=== PATIENT | female | born 1950 | race Caucasian/White ===

== ENCOUNTER → 2018-09-13 | Outpatient (CLI) | payer OTHER, MEDICARE ==
[~2018-09-13] VITALS: Ht 160 cm; Wt 107.0 kg
[~2018-09-13] MED LIST: AMITRIPTYLINE H10 M3 PO; ASPIRIN325 PO; AUGMENTIN 875-1 EACH PO; CARDIZEM CD 18180 M3 PO; FLECAINIDE ACET50 M1 PO; IMITREX100 MG PO; LOPRESSOR25 PO; METFORMIN HCL500 MG PO; PANTOPRAZOLE SO40 M1 PO; PREDNISONE 10 M10 MG PO; PREDNISONE 20 M20 M1 PO; PROAIR HFA8.5 GM PO; PROPRANOLOL 1010 MG PO; SINGULAIR 10 MG10 M1 PO; SUMATRIPTAN-NA1 EACH PO; TORADOL 10 MG T10 MG PO
--- NOTE | ~2018-09-13 | P ---
[facility] [place] [address] PROCEDURE REPORT Name: LYNNE CERDA Room #: REG BRAN RainerRainer#: [id number] Admission: 09/13/18 ������������������ Attend Phys: Dorian Gonsalves MD Discharge: ������������������ Date of : 48 Report #: [id number] THIS REPORT FOR: //name// CC: Dorian Owens [facility] DATE OF SERVICE: 09/13/2018 PREOPERATIVE DIAGNOSIS: Supraventricular tachycardia. 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 PROCEDURES PERFORMED: 1. SVT ablation, CPT 11472. 2. EP with left atrial pacing and recording, CPT code 86941. 3. Program stimulation and pacing after IV drug infusion, CPT code 97044. 4. 3D mapping, CPT code 32989. HISTORY OF PRESENT ILLNESS: The patient is a 67-year-old female with a history of recurrent supraventricular tachycardia that is adenosine sensitive here for SVT ablation. ANESTHESIA: The patient underwent MAC anesthesia with no anesthesia related complications. DESCRIPTION OF PROCEDURE: The patient underwent informed consent. We discussed the details of the procedure including the risks, which include but not limited to bleeding, vascular damage, stroke, MT as well as damage to the [place] conduction system requiring permanent pacemaker. She understood these risks and is willing to proceed. The patient was brought to the EP laboratory in a fasting and sedated state, prepped and draped in a sterile fashion. I obtained access to the bilateral femoral veins after injecting lidocaine and placed sheaths using the modified Seldinger technique. In the right femoral vein, I placed an 8 and 6-Cuban short sheath and in the left femoral vein I placed a 6 and 7-Cuban short sheath. Next, I attempted to place catheters. Trying to place the RV catheter, it did appear that maybe I was in the arteries, so I did obtain access to the left femoral vein another time. I also obtained access to the right femoral vein a second time as well placing an 8-Cuban short sheath. Next, I was able to place my quadripolar catheter into the RV, one catheter at the His and another catheter at the HRA. I had difficulties placing the decapolar into the coronary sinus. When I finally thought I was in the coronary sinus, fluoroscopically did not look like your standard the CS anatomy. I therefore pulled the decapolar catheter out as I don't know if I was in the [facility] [address] [place] [address] PROCEDURE REPORT Name: LYNNE CERDA Room #: REG [facility]#: [id number] Admission: 09/13/18 ������������������ Attend Phys: Dorian Gonsalves MD Discharge: ������������������ Date of : 48 Report #: [id number] right ventricular outflow tract or potentially. Therefore, basic EP study was performed. At baseline, the patient was in sinus rhythm with sinus cycle length of 840 milliseconds, HI interval 175 milliseconds, QRS duration 75 milliseconds, QT interval 370 milliseconds, AH interval 100 milliseconds, HV interval 40 milliseconds. Atrial burst pacing was performed and AV block was noted at 470 milliseconds, AV shania ERP was noted at 300 milliseconds at a [address] cycle length with evidence of single and double AV shania echoes. Ventricular pacing was performed and VA block was noted at 420 milliseconds and VA ERP was noted at 400 milliseconds at a [address] cycle length. VA conduction appeared to be both midline and decremental. Isoproterenol was initiated at 2 mcg per minute and after this kicked in, SVT was easily inducible. The SVT demonstrated a septal VA time of 35 milliseconds with a tachycardia cycle length of 400 milliseconds. Ventricular entrainment was performed and there was a VAHV response consistent with typical AV shania reentrant tachycardia. SVT could easily be induced with single AV shania echoes or atrial burst pacing. 3D MAPPING AND ABLATION: Next, I advanced my 4 mm [employer] [place] ablation catheter into the right atrium. I created a detailed 3D geometry of the right atrium. I do think that the patient likely has a PFO based on the fact that it appeared that I could cross the septum and was likely in the left atrium with ablation catheter. Next, I mapped the His region and the coronary sinus. The patient did have a very vertical coronary sinus and a very large ostium. Therefore, it does appear that I was in the CS at the beginning of the case, although it appeared it had unusual takeoff. Therefore, after I 3D mapped to the coronary sinus, I did put the decapolar catheter into the coronary sinus prior to ablation. Next, I mapped for the slow pathway region. There were some small signals suggestive of the slow pathway that were approximately 15 mm below the His signals. I performed a total of 5 ablation lesions at this site at 50 horvath and 55 degrees and I only got one junctional. Due to her unusual anatomy, I decided to do some post-ablation testing and AVNRT was easily inducible. Therefore, I performed several additional ablation lesions. We did a total of 12 ablation lesions and the last 3 were slightly more in the coronary sinus ostium, which was quite vertical and I had a sharper atrial signals at this location. Ablation at this spot resulted in nice slow junctionals on these three lesions. There was never any compromise to AV shania conduction. As such, we decided to perform post-ablation testing at this point. POST-ABLATION TESTING: Isoproterenol was reinitiated at 2 mcg. Atrial burst pacing was performed and AV block was noted at 300 milliseconds. Atrial ERP was noted at 230 milliseconds at a [address] cycle length. There was no longer a long AH interval nor was there any single AV shania echoes. We tested for about 30 minutes and could not induce SVT where this was easily inducible beforehand. As such isoproterenol was discontinued. Post-ablation, the patient was in sinus rhythm with a sinus cycle length of 590 milliseconds, [facility] [address] [place] [address] PROCEDURE REPORT Name: LYNNE CERDA Room #: [facility]#: [id number] Admission: 09/13/18 ������������������ Attend Phys: Dorian Gonsalves MD Discharge: ������������������ Date of : 48 Report #: [id number] HI interval 180 milliseconds, QRS duration 75 milliseconds, QT interval 340 milliseconds, AH interval 85 milliseconds, and HV interval 41 milliseconds. As such, all catheters and sheaths were pulled. Hemostasis was obtained and the patient awoke neurologically and hemodynamically intact. No complications and no significant bleeding. CONCLUSIONS: 1. Successful ablation of typical AV shania tachycardia. 2. Normal SA shania function. 3. Normal AV shania function. 4. Normal His-Purkinje function. 5. No other inducible arrhythmias on or off isoproterenol. 6. 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 ��������������������������������������������� ���������������������������������������� By: ��������������������������������������������� [id number] Dorian Gonsalves MD /nt
[2018-09-13 07:09] LABS: ABSOLUTE NEUTROPHILS 5.1 thou/uL (1.4-8.2); BASOPHILS 0.9 % (0.0-2.0); EOSINOPHILS 3.1 % (0.0-3.0); HEMATOCRIT 45.2 % (37.0-47.0); HEMOGLOBIN 15.1 gm/dL (12.0-15.0); LYMPHOCYTES 28.6 % (24.0-44.0); MCH 29.8 pg (26.0-34.0); MCHC 33.3 g/dL (28.0-37.0); MCV 89.4 fL (80.0-100.0); MONOCYTES 7.8 % (1.0-8.0); PLATELET COUNT 278 thou/uL (150-400); POLYS 59.6 % (36.0-66.0); RBC 5.06 mil/uL (4.20-5.00); RDW 13.7 % (10.5-14.5); WBC 8.5 thou/uL (4.0-11.0)
[2018-09-13 07:15] VITALS: BP 140/63
[2018-09-13 07:18] LABS: CALCIUM 9.8 mg/dL (8.5-10.1); POTASSIUM 4.6 mmol/L (3.5-5.1)
[2018-09-13 07:25] LABS: TOTAL BILIRUBIN 0.3 mg/dL (<0.1-1.0); TOTAL PROTEIN 7.5 g/dL (6.4-8.2)
[2018-09-13 07:36] LABS: APTT 28.9 Seconds (24.5-32.8); PROTIME 9.4 Seconds (9.3-11.4)
== END | disposition home or self-care (01) ==
LOC: CATH 09-12 11:16
PROVIDERS: Internal Medicine Cardiovascular Disease
DX: I47.1 Supraventricular tachycardia (principal); J45.909 Unspecified asthma, uncomplicated; E66.09 Other obesity due to excess calories; I48.91 Unspecified atrial fibrillation; G43.909 Migraine, unspecified, not intractable, without status migrainosus; Z90.710 Acquired absence of both cervix and uterus; Z88.6 Allergy status to analgesic agent; Z98.890 Other specified postprocedural states; Z79.899 Other long term (current) drug therapy; Z79.01 Long term (current) use of anticoagulants
CPT/HCPCS: 62110; 62900; 70005

== ENCOUNTER → 2020-03-20 | Outpatient (CLI) | payer OTHER, MEDICARE ==
[~2020-03-20] MED LIST changes: +AZITHROMYCIN 2250 MG PO; +IPRAT-ALBUT 0.5-3 ML INH; +LEVALBUTER1.25 MG/0. INH; +PREDNISONE 10 M10 M1 PO
== END ==
LOC: SJCVC 16:24
PROVIDERS: ATTEND Internal Medicine Cardiovascular Disease
DX: R94.31 Abnormal electrocardiogram [ECG] [EKG] (principal); I47.1 Supraventricular tachycardia; I48.0 Paroxysmal atrial fibrillation; E11.9 Type 2 diabetes mellitus without complications; I10 Essential (primary) hypertension; Z79.899 Other long term (current) drug therapy

== ENCOUNTER → 2020-04-29 | Outpatient (CLI) | payer OTHER, MEDICARE | LOC: SJCVC 12:59 | PROVIDERS: ATTEND Internal Medicine Cardiovascular Disease | DX: I49.3 Ventricular premature depolarization (principal); E11.9 Type 2 diabetes mellitus without complications; J45.909 Unspecified asthma, uncomplicated; I10 Essential (primary) hypertension; E66.9 Obesity, unspecified; Z79.82 Long term (current) use of aspirin; Z79.899 Other long term (current) drug therapy ==

== ENCOUNTER → 2020-07-31 | Outpatient (CLI) | payer OTHER, MEDICARE | LOC: SJCVC 13:47 | PROVIDERS: ATTEND Internal Medicine Cardiovascular Disease | DX: R94.31 Abnormal electrocardiogram [ECG] [EKG] (principal); I47.1 Supraventricular tachycardia; I49.3 Ventricular premature depolarization; E66.9 Obesity, unspecified; E11.9 Type 2 diabetes mellitus without complications; J45.909 Unspecified asthma, uncomplicated; G43.909 Migraine, unspecified, not intractable, without status migrainosus; Z79.82 Long term (current) use of aspirin; Z79.84 Long term (current) use of oral hypoglycemic drugs; Z79.899 Other long term (current) drug therapy; Z88.5 Allergy status to narcotic agent; Z88.1 Allergy status to other antibiotic agents; Z88.8 Allergy status to other drugs, medicaments and biological substances ==

== ENCOUNTER → 2020-11-18 | Outpatient (CLI) | payer OTHER, MEDICARE | LOC: SJCVC 13:20 | PROVIDERS: ATTEND Internal Medicine Cardiovascular Disease | DX: R94.31 Abnormal electrocardiogram [ECG] [EKG] (principal); I47.1 Supraventricular tachycardia; I10 Essential (primary) hypertension; I49.3 Ventricular premature depolarization; E66.9 Obesity, unspecified; G43.909 Migraine, unspecified, not intractable, without status migrainosus; E11.9 Type 2 diabetes mellitus without complications; Z79.82 Long term (current) use of aspirin; Z79.84 Long term (current) use of oral hypoglycemic drugs; Z88.5 Allergy status to narcotic agent; Z88.8 Allergy status to other drugs, medicaments and biological substances ==

== ENCOUNTER → 2021-03-24 | Outpatient (CLI) | payer OTHER, MEDICARE | LOC: SJCVC 14:22 | PROVIDERS: ATTEND Internal Medicine Cardiovascular Disease | DX: R94.31 Abnormal electrocardiogram [ECG] [EKG] (principal); G43.909 Migraine, unspecified, not intractable, without status migrainosus; I49.3 Ventricular premature depolarization; J45.909 Unspecified asthma, uncomplicated; E11.9 Type 2 diabetes mellitus without complications; I10 Essential (primary) hypertension; Z85.118 Personal history of other malignant neoplasm of bronchus and lung; Z79.84 Long term (current) use of oral hypoglycemic drugs; Z79.82 Long term (current) use of aspirin; Z79.899 Other long term (current) drug therapy; Z88.5 Allergy status to narcotic agent; Z88.8 Allergy status to other drugs, medicaments and biological substances ==